=== PATIENT | female | born 1970 | race Caucasian/White ===

== ENCOUNTER 2017-04-08 17:24 | Emergency (ER) | payer OTHER ==
[~2017-04-08] VITALS: Ht 170.2 cm; Wt 72.4 kg
[2017-04-08 17:27] VITALS: BP 141/70; PULSE 80; RESP 14; TEMP 98.2; O2SAT 100
[2017-04-08] MEDS ORDERED: LEVO50TA4 PO (17:39)
--- NOTE | 2017-04-08 18:20 | PD ---
HPI Chief Complaint: Musculoskeletal Complaint Time Seen by Provider: 18:04 Travel History International Travel<30 days: No Contact w/Intl Traveler<30days: No Traveled to known affect area: No History of Present Illness HPI 47-year-old female presents to the emergency room for evaluation of left fourth finger pain and swelling after injuring it earlier today. Patient was playing football when a football direct-current directly at the tip of her left fourth finger. She had immediate pain localized to the DIP. Patient states her finger stuck permanently in a slightly flexed position and she could not straighten it. States she called her insurance, and he recommended she come to the emergency room to get a referral to see outpatient workup. Patient reports distal paresthesias. No chronic medical conditions or daily medications. PFSH Past Medical History Diabetes: No Diminished Hearing: No Thyroid Disease: Yes Tetanus Vaccination: Unknown ?: Not Past Surgical History Appendectomy: Yes Section: Yes Cholecystectomy: Yes Hysterectomy: Yes Other Surgery: Yes (CARPAL TUNNEL RELEASE) Social History Alcohol Use: Yes (SOC) Tobacco Use: No Substance Use: No Allergies-Medications (Allergen,Severity, Reaction): Coded Allergies: codeine (Verified Allergy, Severe, 04/08/17) Reported Meds & Prescriptions Reported Meds & Active Scripts Active Reported Levothyroxine (Levothyroxine Sodium) 50 Mcg Tab 50 Mcg PO DAILY Review of Systems Except as stated in HPI: all other systems reviewed are Neg Physical Exam Narrative GENERAL: Well-nourished, well-developed female in no acute distress. Afebrile. Ambulatory. SKIN: Focused skin assessment warm/dry. Moderate ecchymosis of the left fourth DIP joint. HEAD: Normocephalic. EYES: No scleral icterus. No injection or drainage. NECK: Supple, trachea midline. No JVD or lymphadenopathy. CARDIOVASCULAR: Regular rate and rhythm without murmurs, gallops, or rubs. RESPIRATORY: Breath sounds equal bilaterally. No accessory muscle use. EXTREMITY: Right fourth finger tenderness to palpation of the DIP joint. Limited flexion and extension of the left fourth finger. Moderate edema. Less than 2 second capillary refill distally. Data Data Last Documented VS Vital Signs Date Time Temp Pulse Resp B/P (MAP) Pulse Ox O2 Delivery O2 Flow Rate FiO2 04/08/17 17:27 98.2 80 14 141/70 (93) 100 Orders Orders Finger (Eev0lct) (04/08/17 ) Splint Or Brace Apply/Monitor (04/08/17 20:04) Ed Discharge Order (04/08/17 20:30) [facility] Medical Decision Making Medical Screen Exam Complete: Yes Emergency Medical Condition: Yes Medical Record Reviewed: Yes Differential Diagnosis Fracture, dislocation, contusion, sprain, strain Narrative Course 47-year-old female presents to the emergency room for evaluation of left fourth finger pain and swelling after injuring early today. Patient was playing football when the ball struck the tip of her fourth finger. States it has been slightly flexed since then and she could not straighten it. Reports distal paresthesias. Physical exam reveals tenderness to palpation, edema, ecchymosis , and flexion of the left fourth DIP joint. Patient cannot extend distal finger. X-ray shows avulsion fracture at the insertion of the extensor tendon. Patient declined pain medication. I spoke to the hand surgeon production hardener, Dr. Lucero, who recommends placing patient in splint in full extension of DIP with follow-up in her officer this week. Patient was splinted and discharged with orthopedic instructions. She understands and agrees to plan. Diagnosis Primary Impression: Avulsion fracture of distal phalanx of finger Qualified Codes: S62.639A - Displaced fracture of distal phalanx of unspecified finger, initial encounter for closed fracture Referrals: Celeste Lucero MD Additional Instructions: Keep finger in extension. Follow-up with Dr. Lucero. Call for appointment this week. Return for worsening symptoms. Disposition: 01 DISCHARGE HOME Condition: Stable Sonia Chavarria Apr 08, 2017 18:20
--- NOTE | 2017-04-08 18:39 | RADRPT ---
EXAM DATE/TIME: 04/08/2017 18:22 [facility] COMPARISON: No previous studies available for comparison. INDICATIONS : Left 4th digit jammed today playing football. MEDICAL HISTORY : None. SURGICAL HISTORY : None. ENCOUNTER: Initial ACUITY: 1 day PAIN SCORE: 7/10 LOCATION: Left 4th digit FINDINGS: Examination of the fourth digit of the left hand demonstrates an avulsion fracture off the base of th e distal phalanx at the extensor tendon attachment. Soft tissue swelling is seen along the dorsum of the finger. There no other significant abnormalities noted. CONCLUSION: Dorsal avulsion fracture off the base of the distal phalanx of the fourth digit. Renaldo Catherine MD on April 08, 2017 at 18:36 Board Certified Radiologist. This report was verified electronically.
== END 2017-04-08 20:35 | disposition home or self-care (01) ==
LOC: PHEFT 17:24
DX: S62.605A Fracture of unspecified phalanx of left ring finger, initial encounter for closed fracture (principal); W22.8XXA Striking against or struck by other objects, initial encounter; Y93.61 Activity, american tackle football
CPT/HCPCS: 29130; 73140